=== PATIENT | male | born 1960 | race African-American/Black ===

== ENCOUNTER 2024-01-05 02:18 | Emergency (ER) | payer MEDICAID, SELFPAY ==
[2024-01-05 02:25] VITALS: BP 163/104; PULSE 78; RESP 16; O2SAT 96
[2024-01-05 02:27] VITALS: BP 135/95; PULSE 78; RESP 18; TEMP 36.2; O2SAT 99
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
[2024-01-05 02:44] LABS: Basophils Absolute Auto 0.04 K/mm3 (0.00-0.10); Basophils Percent Auto 0.8 % (0.0-1.0); Eosinophils Absolute Auto 0.24 K/mm3 (0.02-0.50); Eosinophils Percent Auto 4.9 % (1.0-6.0); Hematocrit 40.7 % (35.0-49.0); Hemoglobin 12.6 g/dL (12.0-15.0); Immature Granulocyte Absolute 0.02 K/mm3 (0.00-0.00); Immature Granulocyte Percent A 0.4 % (0.0-0.0); Lymphocytes Absolute Auto 1.13 K/mm3 (1.10-4.50); Lymphocytes Percent Auto 22.9 % (18.0-42.0); Mean Corpuscular Hemoglobin 28.3 pg (27.0-31.0); Mean Corpuscular Volume 91.5 fL (78.0-102.0); Mean Platelet Volume 10.3 fl (9.2-11.8); Monocytes Absolute Auto 0.61 K/mm3 (0.10-0.90); Monocytes Percent Auto 12.4 % (2.0-11.0); Neutrophils Absolute Auto 2.89 K/mm3 (1.70-7.20); Neutrophils Percent Auto 58.6 % (50.0-70.0); Platelet Count Result 227 K/mm3 (150-420); Red Blood Count 4.45 M/mm3 (4.20-5.40); Red Cell Distribution Width 14.3 % (11.6-14.4); White Blood Count 4.9 K/mm3 (4.8-10.8)
[2024-01-05 02:54] LABS: Alanine Aminotransferase 17 U/L (14-59); Alkaline Phosphatase 179 U/L (46-116); Anion Gap 11 mmol/L (4-12); Aspartate Amino Transferase 23 U/L (15-37); Bilirubin,Total 3.2 mg/dL (0.00-1.00); Blood Urea Nitrogen 17 mg/dL (7-18); Calcium 8.8 mg/dL (8.5-10.1); Carbon Dioxide 29 mmol/L (21-32); Chloride 97 mmol/L (98-108); Estimated CRCL calculation 57 ml/min; Estimated Glomerular Filt Rate 57; Glucose 130 mg/dL (70-99); Osmolality Calculated 287 mOsm/kg (285-295); Potassium 3.5 mmol/L (3.5-5.1); Sodium 137 mmol/L (136-145); Total Protein 8.5 g/dL (6.4-8.2)
[2024-01-05 02:55] LABS: Ethanol 182 mg/dL (0-6)
--- NOTE | 2024-01-05 02:59 | PC.NURSE ---
PER IN [place] POL[employer] OFFICERS AT BEDSIDE, THEY SPOKE WITH PATIENT FAMILY MEMBER WHO STATES THEY WILL BE AVAILABLE TO COME PICK PATIENT UP.
--- NOTE | 2024-01-05 03:28 | PC.NURSE ---
PATIENT ASSISTED WITH URINAL PER HEADER BOSS. [facility] [place] [employer] REMAIN FOR PATIENT.
--- NOTE | 2024-01-05 04:07 | PC.NURSE ---
PATIENT AWAKE AND RESTING ON STRETCHER QUIETLY AND CALMLY WITHOUT DISTRESS, AWAITING TRANSPORTATION HOME.
[2024-01-05 04:32] VITALS: BP 138/94; PULSE 83; RESP 18; TEMP 36.3; O2SAT 97
--- NOTE | 2024-01-05 04:32 | PC.NURSE ---
PATIENT FAMILY ARRIVES TO TAKE PATIENT HOME. DR RAE AND [facility] [place] [employer] SPEAKING WITH PATIENT AND HIS FAMILY PRIOR TO DEPARTURE.
== END 2024-01-05 04:33 | disposition home or self-care (01) ==
PROVIDERS: Emergency Provider Emergency Medicine
DX: F10.129 Alcohol abuse with intoxication, unspecified (principal); E11.9 Type 2 diabetes mellitus without complications; R94.4 Abnormal results of kidney function studies; E80.7 Disorder of bilirubin metabolism, unspecified; Y90.9 Presence of alcohol in blood, level not specified
CPT/HCPCS: 36415; 80053; 80307; 85025; 99283